=== PATIENT | male | born 1975 | race Caucasian/White ===

== ENCOUNTER 2020-04-11 22:53 | Emergency (ER) | payer OTHER ==
[~2020-04-11] VITALS: Ht 180.3 cm; Wt 86.2 kg
[~2020-04-11 22:53] MED LIST: AUGMENTIN 875-1 EACH PO; FLEXERIL PO; IBUPROFEN 600600 M1; LEXAPRO 10 MG T10 M1 PO; NEOSPORIN OINTM15 GM; NEOSPORIN28 GM; NOHOMEMEDICATIONS; NORCO 5-325 TA1 EACH PO
[2020-04-12 00:14] VITALS: BP 132/78
== END 2020-04-12 00:14 | disposition home or self-care (01) ==
LOC: M.ERS 22:53
DX: S61.411A Laceration without foreign body of right hand, initial encounter (principal); F17.210 Nicotine dependence, cigarettes, uncomplicated; W22.8XXA Striking against or struck by other objects, initial encounter; Y93.89 Activity, other specified; Y92.89 Other specified places as the place of occurrence of the external cause; Y99.8 Other external cause status